=== PATIENT | female | born 2000 | race Caucasian/White ===

== ENCOUNTER 2024-02-22 06:25 | Emergency (ER) | payer OTHER ==
[2024-02-22 06:38] VITALS: TEMP 97.9
[2024-02-22 07:41] LABS: Appearance,Urine Cloudy (Clear); Bacteria,Urine Occasional /hpf; Bilirubin,Urine Negative (Negative); Blood,Urine Small (Negative); Color,Urine Colorless; Glucose,Urine (UA) Negative (Negative); Ketones,Urine Negative (Negative); Leukocyte Esterase,Urine Large (Negative); Mucus,Urine Rare /hpf; Nitrite,Urine Negative (Negative); PH, Urine 6.5 (5.0-8.0); Protein,Urine Trace (Negative); RBC,Urine 24 /hpf (0-5); Specific Gravity,Urine 1.014 (1.001-1.035); Squamous Epithelial Cell,Urine 1 /hpf (0-4); Urobilinogen,Urine <2.0 mg/dL (<2.0); WBC,Urine 76 /hpf (0-5)
[2024-02-22] MEDS: ACETAMINOPHEN TAB 325 MG TAB PO STA (08:54)
[2024-02-22] MEDS: IBUPROFEN 600 MG TAB PO STA (08:54)
[2024-02-22] MEDS: cefTRIAXone 250 MG VIAL IM STA (08:55)
[2024-02-22] MEDS: NITROFURANTOIN MONOHYD/M-CRYST 100 MG CAP PO STA (08:55)
--- NOTE | 2024-02-22 09:17 | US ---
EXAMINATION TYPE: US transvaginal DATE OF EXAM: 02/22/2024 COMPARISON: NONE CLINICAL INDICATION: Female, 23 years old with history of pain; flank pain Lt>Rt TECHNIQUE: Transvaginal (TV). Transvaginal sonographic images were medically necessary to better as sess the following anatomy: Ovaries Date of LMP: nexplanon EXAM MEASUREMENTS: Uterus: 5.9x1.7x2.6 cm Endometrial Stripe: 0.5 cm Right Ovary: not visualized Left Ovary: 2.5x1.7x2.5 cm 1. Uterus: Anteverted wnl 2. Endometrium: wnl 3. Right Ovary: Obscured by overlying bowel gas 4. Left Ovary: wnl Spectral, color and waveform doppler imaging shows good arterial and venous flow within the right o vary; there is no evidence for ovarian torsion. 5. Bilateral Adnexa: Obscured by overlying bowel gas 6. Posterior cul-de-sac: wnl exam limited by bowel gas IMPRESSION: 1. No evidence for acute process. 2. Endometrium within normal limits for thickness.
--- NOTE | 2024-02-22 09:26 | ED ---
Back Pain HPI - General Chief Complaint: Back Pain/Injury Stated Complaint: Back Pain Time Seen by Provider: 02/22/24 07:41 Source: patient, RN notes reviewed, old records reviewed, Caregiver Limitations: no limitations - History of Present Illness Initial Comments: This is a 23 female to the ED co back pain, not feeling well, cramping wrapping around to abdomen, patient denies , denies chance of , denies bowel or bladder issues. No trauma of fever. Patient has no medical or surgical history. MD Complaint: back pain -: hour(s) Similar Symptoms Previously: Yes Place: home Radiation: none Severity: moderate Severity scale (1-10): 4 Quality: dull Consistency: constant Improves With: none Worsens With: none Associated Symptoms: denies other symptoms - Related Data Previous Rx's Medication Instructions Recorded Nitrofurantoin Monohyd/M-Cryst 100 mg PO Q12HR #10 cap 02/22/24 [Macrobid] Allergies Allergy/AdvReac Type Severity Reaction Status Date / Time lidocaine AdvReac Unknown Verified 02/22/24 06:38 Childhood Review of Systems ROS Statement: Those systems with pertinent positive or pertinent negative responses have been documented in the HPI. ROS Other: All systems not noted in ROS Statement are negative. Past Medical History Past Medical History: No Reported History History of Any Multi-Drug Resistant Organisms: None Reported Past Surgical History: No Surgical Hx Reported Past Psychological History: No Psychological Hx Reported Smoking Status: Never smoker Past Alcohol Use History: Occasional Past Drug Use History: None Reported General Exam Limitations: no limitations General appearance: alert, in no apparent distress Head exam: Present: atraumatic, normocephalic, normal inspection Eye exam: Present: normal appearance, PERRL, EOMI. Absent: scleral icterus, conjunctival injection, periorbital swelling ENT exam: Present: normal exam, mucous membranes moist Neck exam: Present: normal inspection. Absent: tenderness, meningismus, lymphadenopathy Respiratory exam: Present: normal lung sounds bilaterally. Absent: respiratory distress, wheezes, rales, rhonchi, stridor Cardiovascular Exam: Present: regular rate, normal rhythm, normal heart sounds. Absent: systolic murmur, diastolic murmur, rubs, gallop, clicks GI/Abdominal exam: Present: soft, normal bowel sounds. Absent: distended, tenderness, guarding, rebound, rigid Extremities exam: Present: normal inspection, full ROM, normal capillary refill. Absent: tenderness, pedal edema, joint swelling, calf tenderness Back exam: Present: normal inspection Neurological exam: Present: alert, oriented X3, CN II-XII intact Psychiatric exam: Present: normal affect, normal mood Skin exam: Present: warm, dry, intact, normal color. Absent: rash Course Vital Signs 02/22/24 02/22/24 06:36 09:59 Temperature 97.9 F 97.9 F Pulse Rate 69 84 Respiratory 18 16 Rate Blood Pressure 112/75 120/81 O2 Sat by Pulse 98 98 Oximetry - Reevaluation(s) Reevaluation #1: 02/22/24 09:39 medical record is reviewed Reevaluation #2: 02/22/24 09:39 patients symptoms are improved Reevaluation #3: 02/22/24 09:39 patient is informed of results and questions answered Reevaluation #4: Was pt. sent in by a medical professional or institution (, [place], [facility], urgent care, hospital, or jail...) When possible be specific @ -no Did you speak to anyone other than the patient for history (EMS, parent, family, police, friend...)? What history was obtained from this source @ -no Did you review nursing and triage notes (agree or disagree)? Why? @ -agree Are old charts reviewed (outside hosp., previous admission, EMS record, old EKG, old radiological studies, urgent care reports/EKG's, jail records)? Report findings @ -yes Differential Diagnosis (chest pain, altered mental status, abdominal pain women, abdominal pain men, vaginal bleeding, weakness, fever, dyspnea, syncope, headache, dizziness, GI bleed, back pain, seizure, CVA, palpatations, mental health, musculoskeletal)? @ -prior EKG interpreted by me (3pts min.). @ -yes X-rays interpreted by me (1pt min.). @ -no CT interpreted by me (1pt min.). @ -yes negative for acute disease U/S interpreted by me (1pt. min.). @ -no What testing was considered but not performed or refused? (CT, X-rays, U/S, labs)? Why? @ -none What meds were considered but not given or refused? Why? @ -none Did you discuss the management of the patient with other professionals (professionals i.e. [facility]Bar, [place], [facility], lab, RT, psych nurse, protective services social worker, pocket closer, teacher, training officer, disease case manager rn)? Give summary @ -no Was smoking cessation discussed for >3mins.? @ -no Was critical care preformed (if so, how long)? @ -no Were there social determinants of health that impacted care today? How? (Homelessness, low income, unemployed, alcoholism, drug addiction, transportation, low edu. Level, literacy, decrease access to med. care, senior care, rehab)? @ -none Was there de-escalation of care discussed even if they declined (Discuss DNR or withdrawal of care, Hospice)? DNR status @ -no What co-morbidities impacted this encounter? (DM, HTN, Smoking, COPD, CAD, Cancer, CVA, ARF, Chemo, Hep., AIDS, mental health diagnosis, sleep apnea, morbid obesity)? @ -none Was patient admitted / discharged? Hospital course, mention meds given and route, prescriptions, significant lab abnormalities, going to OR and other pertinent info. @ - 23 female to the ED W abdominal back pain, US negative for acute disease, evidence of UTI, will treat for UTI and DC home. Discharge Undiagnosed new problem with uncertain prognosis? @ -no Drug Therapy requiring intensive monitoring for toxicity (Heparin, Nitro, Insulin, Cardizem)? @ -no Were any procedures done? @ -no Diagnosis/symptom? @ -Abdominal pain, UTI, back pain Acute, or Chronic, or Acute on Chronic? @ -Acute Uncomplicated (without systemic symptoms) or Complicated (systemic symptoms)? @ -Complicated Side effects of treatment? @ -no Exacerbation, Progression, or Severe Exacerbation? @ -exacerbation Poses a threat to life or bodily function? How? (Chest pain, [place], [place], pneumonia, PE, COPD, DKA, ARF, appy, cholecystitis, CVA, Diverticulitis, Homicidal, Suicidal, threat to staff... and all critical care pts) @ -no Reevaluation #5: Differential Back Pain: Strain, zoster, cauda equina syndrome, epidural abscess, vertebral osteomyelitis, discitis, fracture, subluxation, disc herniation, DJD, spinal stenosis, dissection, AAA, pancreatitis, peptic ulcer disease, pyelonephritis, kidney stone, this is not meant to be an all-inclusive list. Medical Decision Making - Medical Decision Making 23 female to the ED W abdominal back pain, US negative for acute disease, evidence of UTI, will treat for UTI and DC home. - Lab Data Lab Results 02/22/24 02/22/24 02/22/24 Range/Units 06:43 06:43 06:43 Urine Color Colorless Urine Appearance Cloudy H (Clear) Urine pH 6.5 (5.0-8.0) Ur Specific [place] 1.014 (1.001-1.035) Urine Protein Trace H (Negative) Urine Glucose (UA) Negative (Negative) Urine Ketones Negative (Negative) Urine Blood Small H (Negative) Urine Nitrite Negative (Negative) Urine Bilirubin Negative (Negative) Urine Urobilinogen <2.0 (<2.0) mg/dL Ur Leukocyte Esterase Large H (Negative) Urine RBC 24 H (0-5) /hpf Urine WBC 76 H (0-5) /hpf Ur Squamous Epith Cells 1 (0-4) /hpf Urine Bacteria Occasional H (None) /hpf Urine Mucus Rare H (None) /hpf Urine HCG, Qual Not Detected (Not Detectd) Chlamydia DNA (PCR) Negative (Negative) N.gonorrhoeae DNA Probe Negative (Negative) - Radiology Data Radiology results: report reviewed (US pelvis negative for acute disease), image reviewed Disposition Clinical Impression: Mechanical back pain, UTI (urinary tract infection) Disposition: HOME SELF-CARE Instructions (If sedation given, give patient instructions): Urinary Tract Infection in Women (ED), Acute Low Back Pain (ED) Prescriptions: Nitrofurantoin Monohyd/M-Cryst [Macrobid] 100 mg PO Q12HR #10 cap Is patient prescribed a controlled substance at d/c from ED?: No Referrals: None,Stated [Primary Care Provider] - 1-2 days Time of Disposition: 09:30
[2024-02-22 10:00] VITALS: BP 120/81; PULSE 84; RESP 16
[2024-02-26 14:23] LABS: N. gonorrhoeae,PCR Negative (Negative)
[2024-02-26 14:25] LABS: C. trachomatis,PCR Negative (Negative)
== END 2024-02-22 10:50 | disposition home or self-care (01) ==
LOC: EC 06:25
CPT/HCPCS: 76830; 81001; 81025; 87086; 87491; 87591; 93976; 96372; 99284